=== PATIENT | male | born 1950 | race Caucasian/White ===

== ENCOUNTER 2024-11-18 09:31 | Emergency (ER) | payer MEDICARE, OTHER ==
[2024-11-18] VITALS (19 sets, daily range): BP systolic 102–146; BP diastolic 54–89
[~2024-11-18] VITALS: Ht 172.7 cm; Wt 90.0 kg
[2024-11-18] MEDS ORDERED: MORPHINE SULFATE 4 MG/ML VIAL IV ONE (10:20)
[2024-11-18] MEDS ORDERED: Diph, Acellular Pertussis, Tet 0.5 ML/VIAL (Tdap) SDV IM ONE (10:20)
[2024-11-18] MEDS ORDERED: ONDANSETRON HCl 4 MG/2 ML SDV IV ONE (10:25)
[2024-11-18 10:27] LABS: BASO% 0.8 % (0-3); EOS% 2.1 % (0-8); HEMATOCRIT 42.8 % (39.0-50.0); HEMOGLOBIN 14.2 g/dl (14.0-18.0); IMMATURE GRANULOCYTES 1.4 % (0.0-5.0); LYMPH% 14.6 % (15-41); MEAN CELL VOLUME 101.9 fL CALC (80.0-100.0); MEAN CORPUSCULAR HGB 33.8 pG CALC (26.0-32.0); MEAN CORPUSCULAR HGB CONC 33.2 g/dL CAL (32.0-36.0); MONO% 9.7 % (2-13); NEUT# 4.52 thou/uL (1.82-7.42); NEUT% 71.4 % (42-76); RED BLOOD COUNT 4.2 mill/uL (4.70-6.10); RED CELL DISTRI WIDTH 13.8 % (11.5-15.5)
[2024-11-18 10:51] LABS: ALKALINE PHOSPHATASE 60 u/l (38-126); ANION GAP 10 (6-22 (CALC)); BILIRUBIN, TOTAL 0.8 mg/dL (0.2-1.3); BUN 17 mg/dL (8-23); BUN/CREATININE RATIO 18 (12-20 (CALC)); CARBON DIOXIDE 26 mmol/l (22-30); CHLORIDE 107 mmol/l (95-108); CREATININE 0.9 mg/dL (0.7-1.3); ESTIMATED GFR 90 ML/MIN (>=90 (CALC)); POTASSIUM 4.5 mmol/l (3.5-5.1); SGOT/AST 40 u/l (19-48); SODIUM 138 mmol/l (137-146); TOTAL PROTEIN 6.4 g/dL (6.3-8.2)
[2024-11-18] MEDS ORDERED: HYDROCO/APAP1 TA9 PO (13:48)
[2024-11-18] MEDS ORDERED: EC-NAPROXEN500 MG PO (13:48)
[2024-11-18] MEDS ORDERED: HYDROmorphone HCL 2 MG/AMP IV ONE (13:50)
== END 2024-11-18 14:21 | disposition home or self-care (01) ==
LOC: ED 09:31
PROVIDERS: Family Medicine
DX: R07.81 Pleurodynia (principal); S51.812A Laceration without foreign body of left forearm, initial encounter; M06.9 Rheumatoid arthritis, unspecified; W19.XXXA Unspecified fall, initial encounter; Y92.009 Unspecified place in unspecified non-institutional (private) residence as the place of occurrence of the external cause
CPT/HCPCS: 90715; J1171; J2405